=== PATIENT | female | born 1960 | race Two or more races ===

== ENCOUNTER 2020-01-09 09:14 | Emergency (ER) | payer BC ==
[~2020-01-09] VITALS: Ht 162.6 cm; Wt 74.4 kg
== END 2020-01-09 13:28 | disposition home or self-care (01) ==
LOC: ER 09:14
DX: J40 Bronchitis, not specified as acute or chronic (principal); B34.9 Viral infection, unspecified; B96.0 Mycoplasma pneumoniae [M. pneumoniae] as the cause of diseases classified elsewhere